=== PATIENT | male | born 1940 | race Caucasian/White ===

== ENCOUNTER → 2017-06-20 | Outpatient (CLI) | payer OTHER | LOC: FIMAGING 08:46 | PROVIDERS: ATTEND Family Medicine | DX: M79.644 Pain in right finger(s) (principal) ==

== ENCOUNTER → 2017-07-14 | Outpatient (CLI) | payer OTHER | LOC: FIMAGING 15:47 | PROVIDERS: ATTEND Family Medicine | DX: M18.11 Unilateral primary osteoarthritis of first carpometacarpal joint, right hand (principal) ==

== ENCOUNTER 2018-12-31 08:36 | Observation (INO) | payer OTHER ==
[2018-12-31] MEDS ORDERED: FAMOTIDINE 20 MG TAB PO ONE (08:41)
[2018-12-31] MEDS ORDERED: NS 1,000 ML IV ONE (08:41)
[2018-12-31] MEDS ORDERED: diphenhydrAMINE 25 MG CAP PO ONE (08:41)
[2018-12-31] MEDS ORDERED: ASPIRIN EC 325 MG TAB PO ONE (08:41)
[2018-12-31] MEDS ORDERED: DIAZEPAM 5 MG TAB PO ONE (08:41)
[2018-12-31] MEDS ORDERED: fentaNYL 100 MCG/2 ML INJ ONE ×3 (09:14→11:57)
[2018-12-31] MEDS ORDERED: LIDOCAINE 1% 300 MG/30 ML SDV ONE (09:14)
[2018-12-31] MEDS ORDERED: IOPAMIDOL (ISOVUE-370) 150 ML BTL IV ONE ×2 (09:15→11:15)
[2018-12-31] MEDS ORDERED: HEPARIN 10,000 UNIT/10 ML MDV (1,000 UNIT/ML) ONE (09:15)
[2018-12-31] MEDS ORDERED: VERAPAMIL 5 MG/2 ML VIAL ONE (09:15)
[2018-12-31] MEDS ORDERED: MIDAZOLAM 2 MG/2 ML VIAL ONE ×3 (09:15→11:57)
[2018-12-31 09:20] LABS: PLATELET COUNT 156 10^3/uL (150-400)
[2018-12-31 09:33] LABS: INR 0.99 (0.83-1.16); PROTIME(PATIENT) 12.7 SEC (12.0-15.0)
--- NOTE | 2018-12-31 10:22 | PDPROPOC ---
Sedation Plan of Care Sedation Plan of Care: vital signs stable, mental status noted, patient educated of risks, benefits, alternatives, patient can tolerate sedation ASA Classification: ASA 3 Planned drugs: fentanyl, midazolam Mallampati Score: Class 2 Mallampati Reference Image: Patient passed 3-3-2 rule?: Yes
--- NOTE | 2018-12-31 10:25 | PDHPUP ---
History & Physical Update H&P update statement: This history and physical update is based on an assessment of the patient which was completed after admission or registration (within 24 hours), but prior to the surgery/procedure. H&P update: H&P reviewed & patient examined, no change in patient's condition since H&P completed (CCS Class III and abnormal nuclear stress test)
--- NOTE | 2018-12-31 10:56 | PDDXCAT ---
Diagnostic Cath Note - . 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 LAD: The left anterior descending is mm in size. The vessel gives rise to three diagonal branches. There is a subtotal occlusion of 80% at the proximal segment of the first diagonal with evidence of competitive flow. The LAD is totally occluded distal to the third diagonal. LCX: The left circumflex is is 4.5mm in size and gives rise to two important obtuse marginal branches. There is a (74% stenosis by QCA) in the proximal segment of the Left circumflex. The vessel is large and dominant giving rise to the PDA. RCA: The right coronary artery is 2 mm in size and non dominant. There is YOLA III flow to the distal vessel. Ramus: The Ramus intermedius is 2.5mm in size. There is a 95% ostial stenosis with YOLA II flow. The vessel is relatively short and is not likely to be a good candidate for intervention. rSVG: The SVG to the PDA is totally occluded. The SVG to the obtuse marginal and first diagonal is widely patent with a good anastamosis. There is graft to diagonal vessel size mismatch resulting in relatively sluggish flow within the vein graft. MARTINEZ: MARTINEZ to the LAD is totally occluded. EDP: 12mmHg LVEF: 60% Wall motion: On the LV gram there is normal LV systolic function. The EF is 60% . There are no resting segmental wall motion abnormalities. 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 There is no gradient on pullback across the aortic valve. There is no evidence of kike dissection or aneurysm formation of the thoracic aorta. - Findings-Right Heart Catheterization AO: 142/69/97 Complications: NONE Estimated blood loss: <50ml Closure method: Angioseal Assessment: The patient has sevre white earth vessel disease involving 4V bypass nine years ago. The MARTINEZ to the LAD and SVG to the PDA is totally occluded. The SVG to the first diagonal and OM is widely patent. The patient has obstructive disease involving the [place] circumflex and LAD, which were sucessfully stented for indication of angina pectoris and abnormal stress test. Plan: Aspirin 81mg along with Plavix 75mg daily should be continued for at least 1 year following drug eluting stent implantation. No elective surgery for the first 3 months. Decisions to stop dual antiplatelet therapy before 1 year should involve our office [phone]. The patient should be treated to achieve a non-HDL cholesterol of less than 100mg/dL. Intervention: A 6 Slovenian 4 EBU guiding catheter was used for guide catheter support. A 0.014" 180 cm Intuition Wire was advanced across the lesion in in the proximal left circumflex under direct fluoroscopic and angiographic guidance. A 4.0 x 16mm Synergy drug eluting stent was advanced over the lesion in the proximal circumflex. The stent delivery system was deployed at a maximum pressure of 16atm for 27 seconds and then removed. A Wiggle Wire was advanced down the Circumflex in addition to the Intuition Wire. A 5.0 x 12mm NC Emerge balloon was advanced over the Wiggle Wire and inflated at a maximum pressure of 12atm for 14 seconds. There was 5% residual stenosis post stent implantation with YOLA III flow pre and post stent implantation. The Intuition wire was removed from the circumflex and repositioned across the lesion in question under direct fluoroscopic and angiographic guidance. The Wiggle Wire was removed from the circumflex. A 2.5x 12 Emerge balloon was advanced over the Intuition Wire across the lesion proximal to the first diagonal. The balloon was inflated at a maximum pressure of 16atm and ruptured. The balloon was removed and replaced with a 2.7 x 8mm NC Emerge balloon. The balloon was inflated at a maximum pressure of 18atm for 35seconds and removed. A 2.75 x 16mm Synergy drug eluting stent was advanced over the Intuition Wire and unable to cross over the lesion in question. The stent was removed. A short Wiggle Wire was advanced across the LAD in addition to the Intuition Wire. The 2.7 x 16mm Synergy drug eluting stent was advanced over the short Wiggle Wire across the lesion in the LAD. The Intuition wire was removed. The stent delivery system was deployed at a maximum pressure of 16 robert for 30 seconds. There was 5% residual stenosis post stent implantation with YOLA III flow pre and post stent implantation.
[2018-12-31] MEDS ORDERED: NITROGLYCERIN 1,500 MCG/15 ML VIAL MISC ONE (11:06)
[2018-12-31] MEDS ORDERED: BIVALIRUDIN 250 MG/5 ML VIAL IV ONE ×2 (11:06→12:07)
[2018-12-31] MEDS ORDERED: METOPROLOL TARTRATE 5 MG/5 ML INJ ONE (11:59)
[2018-12-31] MEDS ORDERED: HYDROCODONE/APAP 5/325 TAB PO PRN (12:23)
[2018-12-31] MEDS ORDERED: TEMAZEPAM 15 MG CAP PO PRN (12:23)
[2018-12-31] MEDS ORDERED: ONDANSETRON 4 MG/2 ML VIAL IVP PRN (12:23)
[2018-12-31] MEDS ORDERED: CLOPIDOGREL BISULFATE 75 MG TAB PO ONE (12:23)
[2018-12-31] MEDS ORDERED: LORazepam 2 MG/ML INJ IVP PRN (12:23)
[2018-12-31] MEDS ORDERED: OXYCODONE/APAP 5/325 TAB PO PRN (12:23)
[2018-12-31] MEDS ORDERED: ATROPINE SULFATE 1 MG/10 ML SYR IVP PRN (12:23)
[2018-12-31] MEDS ORDERED: MELATONIN 3 MG TAB PO PRN (12:28)
[2018-12-31] MEDS ORDERED: NS 1,000 ML IV SCH (12:30)
[2018-12-31] MEDS ORDERED: CLOPIDOGREL BISULFATE 75 MG TAB ONE (12:31)
[2018-12-31] MEDS ORDERED: ACYCLOVIR 400 MG TAB PO PRN (13:15)
[2018-12-31] MEDS: NIACIN 500 MG TAB PO SCH (20:35)
[2018-12-31] MEDS: METOPROLOL TARTRATE 25 MG TAB PO SCH (20:35)
[2018-12-31] MEDS ORDERED: ATORVASTATIN CALCIUM 10 MG TAB PO SCH (21:00)
[2018-12-31] MEDS ORDERED: FAMOTIDINE 20 MG TAB PO PRN (21:00)
[2019-01-01 03:51] LABS: PLATELET COUNT 146 10^3/uL (150-400)
[2019-01-01 07:50] VITALS: BP 142/81
[2019-01-01] MEDS: NIACIN 500 MG TAB PO SCH (08:17)
[2019-01-01] MEDS: METOPROLOL TARTRATE 25 MG TAB PO SCH (08:17)
[2019-01-01] MEDS ORDERED: ASPIRIN EC 325 MG TAB PO SCH (09:00)
[2019-01-01] MEDS ORDERED: LISINOPRIL 10 MG TAB PO SCH (09:00)
[2019-01-01] MEDS ORDERED: OMEGA-3 FATTY ACIDS 1,000 MG CAP PO SCH (09:00)
[2019-01-01] MEDS ORDERED: VITAMIN B COMPLEX 1 EA CAP/TAB PO SCH (09:00)
[2019-01-01] MEDS ORDERED: CLOPIDOGREL BISULFATE 75 MG TAB PO SCH (09:00)
--- NOTE | 2019-01-01 11:28 | ASDISCHSUM ---
Discharge Information Plan Status:Home with No Needs Medically Cleared to Leave:01/01/2019 Discharge Date:01/01/2019 CM D/C Disposition:Home, Routine, Self-Care ADT D/C Disposition: Projected Discharge Date:01/01/2019 Transportation at D/C: Discharge Delay Reason: Follow-Up Date:01/01/2019 Discharge Slot: Final Diagnosis: Placement Information Patient Contact Information Contact Name:IMELDA Relationship: Address:[address] City:[place] Alternate Phone: State/Zip Code:[place] [address] Email: Financial Information Financial Class:Medicare Advantage Plans Primary Plan Desc:[place] MEDICARE ADV Primary Plan Number:[id number] Secondary Plan Desc: Secondary Plan Number: Assessment Information LACE LACE Length of stay for Answers: Less than 1 day current admission Acuity / Level of Answers: No Care: Did the patient have an inpatient admission? Comorbidities - select Answers: Any tumor (including all that apply lymphoma or leukemia) # of Emergency department Answers: 0 visits in the last 6 months Score: 2 Date Signed: 01/01/2019 11:27 AM Electronically Signed By:Junie Roland RN Intervention Information
--- NOTE | 2019-01-01 12:34 | GDS ---
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 Berumen ADMISSION DIAGNOSES: 1. Coronary artery disease. 2. Chest pressure. 3. Abnormal stress test. 4. Hypertension. 5. Hypercholesteremia. 6. Benign essential prostate cancer. DISCHARGE DIAGNOSES: 1. Coronary artery disease. 2. Status post percutaneous coronary intervention of the proximal circumflex with a 4.0 x 16 Synergy drug eluting stent implantation. 3. Status post percutaneous coronary intervention of the ostial 1st diagonal with a 2.75 x 16 Synerg y drug eluting stent implantation. 4. Hypertension. 5. Hyperlipidemia. 6. Benign prostate cancer. PROCEDURES PERFORMED DURING HOSPITALIZATION: 1. Left coronary angiogram. 2. Left bypass graft injection. 3. Percutaneous coronary intervention of the circumflex with a 4 0 x 16 Synergy ROBYN implantation. 4. Percutaneous coronary intervention of the proximal 1st diagonal with a 2.75 x 16 Synergy ROBYN impl antation. 5. Electrocardiogram. BRIEF HISTORY: Please see H and P. Briefly, the patient is a pleasant 78-year-old male who has know n history of CAD with remote CABG x4 vessel in 2009. He had recently seen Dr. Salguero for annual visi t reporting episodes of chest tightness with exertion. He did undergo stress testing on December 18, in which he was noted on treadmill to have [address] depression, giving him a Moses treadmill score o f zero, placing him at intermediate risk. On myocardial perfusion imaging, patient was noted to show a small size, mid intensity reversible mid to distal inferior deficit consistent with ischemia. Due to this, patient was admitted for elective coronary angiogram. HOSPITAL COURSE: Patient was admitted through CVC, prepped for procedure, and taken to the cardiac c atheterization lab; there, Dr. Salguero performed a coronary angiogram with grafts , alturas circulation . He did note that there was a 75% proximal lesion in his alturas circumflex. He was noted to have a subtotal 80% occlusion in the proximal 1st diagonal, a 95% ostial stenosis in his ramus. Right jt nary was nondominant. Grafts were then shot in which the SVG to the PDA was noted to be totally occl uded. SVG to the OM was patent. SVG to diagonal was patent, and MARTINEZ to the LAD was totally occlude d. At that time, percutaneous coronary intervention was done first to the circumflex in which a 4 0 x 16 Synergy ROBYN implantation was done with no complications, followed by percutaneous coronary inter vention to the first diagonal with a 2.75 x 16 Synergy stent. LV gram was done, which showed EF of 6 0% with no wall motion abnormalities. No complications. Patient was transferred back to the CVC, and ultimately to the PCU for overnight observation. Brijesh quintero informs me today that he has had no chest pain, pressure, or symptoms suggesting of ischemia throug hout the night. He has been up and walking the unit without difficulties. He has maintained sinus r hythm with occasional PVC, but no other malignant arrhythmias or pauses noted. PHYSICAL EXAMINATION: GENERAL APPEARANCE: Medium built, well-groomed male. He is alert a nd oriented to person, place, time, and situation, appears to be under no acute distress. VITAL SIGN S: Current: Blood pressure 142/81, heart rate of 75, respirations 18, saturating 93% on room air, te mperature 36.8 degrees Celsius. HEENT: Head is normocephalic. Lips and tongue are pink and moist w ith no signs of cyanosis. Conjunctivae pink. NECK: Trachea is midline, +2 carotid pulses bilateral . No auscultated bruits. No jugular vein distention. RESPIRATORY: Lungs are clear to auscultation . No rhonchi, rales or wheezes. No accessory muscle use. No intercostal muscle retraction noted. CARDIAC: Regular rate, regular rhythm, S1, S2. A 1/6 systolic murmur noted along the sternal border . ABDOMEN: Soft, nontender. Bowel sounds x4 quadrants. No organomegaly. No palpable masses. SKI N: [place], warm, dry. No cyanosis. No clubbing. No peripheral edema. VASCULAR: +2 carotids bilate ral, +2 radials bilateral, +1 dorsal pedal and posterior tibial pulses bilateral. GROINS: Catheter insertion right groin with no redness, swelling, drainage, ecchymosis, or hematoma. No auscultated b ruit noted over site. Normal CMS checks to the right lower extremity. LABORATORY: Studies drawn today show WBC of 6.82, hemoglobin of 13.7, hematocrit 41.3, platelet coun t of 146. Sodium 135, potassium 4.1, chloride 107, CO2 20, BUN 17, creatinine 2.9, glucose 82, calci um 8.7, phosphorus 3.7, magnesium 1.8. Total bilirubin 0.7, AST 23, 301, albumin 3.2. On admission, he had a fasting lipid panel drawn that showed triglycerides of 53, total cholesterol 155 , LDL of 61, HDL of 83. STUDIES: Diagnostic coronary angiogram with grafts and percutaneous coronary interventions as opal benitez above. Electrocardiogram today showing sinus rhythm , leftward axis, no significant ST or T-wave abnormaliti es. DISCHARGE DISPOSITION: Patient will be discharged home in stable condition. He is under activity re strictions, not lifting more than 10 pounds for next week, no strenuous activity for the next 2 weeks . DISCHARGE MEDICATIONS: Please see discharge medication reconciliation sheet. Note, the patient has had his anti-platelet therapy of aspirin increased to 325 mg p.o. daily and he has been started on cl opidogrel 75 mg p.o. daily. DISCHARGE INSTRUCTIONS: Post-percutaneous coronary intervention discharge instructions went over wit h the patient and his , including monitoring for signs of infection, bleeding precautions, activi ty restrictions, and medication compliancy. It was expressed significantly the importance of dual an tiplatelet therapy, especially with recent ROBYN implantations. At the time of discharge, patient and verbalized understanding all instructions and verbalized no questions. They have been told if a ny problems or concerns come up post-discharge, they are to notify our office or return to the hospit al. TOTAL TIME SPENT ON DISCHARGE: Greater than 30 minutes. /[id number]/MODL
== END 2019-01-01 12:06 | disposition home or self-care (01) ==
LOC: FCATH 08:36 → F2W 12:23
PROVIDERS: ADMIT Internal Medicine Cardiovascular Disease; ATTEND Internal Medicine Cardiovascular Disease
DX: I25.810 Atherosclerosis of coronary artery bypass graft(s) without angina pectoris (principal); I25.82 Chronic total occlusion of coronary artery; R94.39 Abnormal result of other cardiovascular function study; R07.89 Other chest pain; I10 Essential (primary) hypertension; E78.5 Hyperlipidemia, unspecified; Z79.82 Long term (current) use of aspirin; Z85.46 Personal history of malignant neoplasm of prostate; Z82.49 Family history of ischemic heart disease and other diseases of the circulatory system; Z95.1 Presence of aortocoronary bypass graft
CPT/HCPCS: 93459; C1725; C1760; C1769; C1874; C1887; C9600; G0378; J0583; J1644; J2250; J3010; Q9967; C9601